=== PATIENT | male | born 1940 | race Caucasian/White ===

== ENCOUNTER 2016-09-20 09:12 | Observation (INO) | payer OTHER ==
[~2016-09-20] VITALS: Ht 167.6 cm; Wt 87.1 kg
[~2016-09-20 09:12] MED LIST: Amaryl PO; Cozaar PO; Halfprin PO; Lopressor PO; MULTIVITAMIN WITH MI PO; Norvasc PO; OMEGA 3-6-91200 MG PO; PriLOSEC PO; Restasis 0.05% BOTH EYES; VOLTAREN 1% GE100 GM TP; Vitamin B-12 PO; Vitamin D PO; Vitamin D, Drisdol PO; Vytorin 10/80 PO; Zantac,Taladine PO; celeBREX PO
[2016-09-20] MEDS ORDERED: ATORVASTATIN CA40 MG PO (09:56)
[2016-09-20] MEDS ORDERED: NOVOLOG PE100 UNITS/ SC (09:57)
[2016-09-20] MEDS ORDERED: METFORMIN HCL1000 MG PO (09:57)
[2016-09-20] MEDS ORDERED: LANTUS 3 M100 UNITS1 SC (09:58)
[2016-09-20 10:32] LABS: EOSINOPHIL COUNT 0.2 K/uL (0-0.3); HEMATOCRIT 36.8 % (38.0-50.0); IMMATURE GRANULOCYTE (%) 0.4 % (0.0-0.7); INSTRUMENT ABS NEUTROPHIL CT 3.5 K/uL; LYMPHOCYTE COUNT 1.2 K/uL (1.0-2.8); MCH 32.1 PG (29.0-34.0); MCHC 34.2 G/DL (30.0-36.0); MCV 93.9 FL (86-99); MEAN PLAT.VOLUME 9.9 uM^3 (9.0-12.4); MONOCYTE (%) 7.9 % (3-12); MONOCYTE COUNT 0.4 K/uL (0-0.8); NEUTROPHIL (%) 64.9 % (45-76); NEUTROPHIL COUNT 3.5 K/uL (1.8-6.4); PLATELET COUNT 166 K/uL (156-360); RBC DIS.WIDTH-CV 13.3 % (11.8-14.6); RBC DIS.WIDTH-SD 45.7 % (39-53); RED BLOOD COUNT 3.92 M/uL (4.00-5.50); WHITE BLOOD COUNT 5.4 K/uL (4.1-10.2)
[2016-09-20 10:42] LABS: INTER. NORMALIZED RATIO 1.1; PROTHROMBIN TIME 11.4 (9.2-11.2); PTT 28.3 (25-32)
[2016-09-20 10:51] LABS: CHLORIDE 102 mEq/L (99-109); SODIUM 137 mEq/L (136-147)
[2016-09-20 10:52] LABS: GLUCOSE 198 mg/dL (70-99)
[2016-09-20 10:54] LABS: ANION GAP 7 MEQ/L (2-14)
[2016-09-20 10:56] LABS: GFR ESTIMATE (CALCULATED) > 59 mL/min/
[2016-09-20 10:57] LABS: UREA NITROGEN (BUN) 15 mg/dL (9-23)
[2016-09-20 11:01] LABS: TROP-I INTERPRETATION NEGATIVE; TROPONIN-I 0.01 ng/mL (0.0-0.30)
[2016-09-20] MEDS ORDERED: LO-DOSE ASPIRIN81 M2 PO (13:52)
[2016-09-20] MEDS ORDERED: MYVITALIFE1 EACH PO (13:53)
[2016-09-20] MEDS ORDERED: COZAAR100 MG PO (13:54)
[2016-09-20] MEDS ORDERED: ZANTAC150 MG PO (13:54)
[2016-09-20] MEDS ORDERED: NORVASC10 MG PO (13:56)
[2016-09-20] MEDS ORDERED: LOPRESSOR50 MG PO (13:56)
[2016-09-20] MEDS ORDERED: PRILOSEC20 MG PO (13:57)
[2016-09-20] MEDS ORDERED: VITAMIN B-122500 MCG SL (13:57)
[2016-09-20] MEDS ORDERED: AMARYL4 MG PO (13:58)
[2016-09-20 14:07] LABS: LIPASE 13 U/L (1.0-51.0)
[2016-09-20 14:27] VITALS: BP 178/79
[2016-09-20 16:00] VITALS: BP 184/84
[2016-09-20 18:01] LABS: POINT-OF-CARE METER ID UU14162513
[2016-09-20 19:43] LABS: TROP-I INTERPRETATION NEGATIVE; TROPONIN-I 0.01 ng/mL (0.0-0.30)
[2016-09-20 20:00] VITALS: BP 162/84
[2016-09-20 21:42] LABS: POINT-OF-CARE METER ID UU14162513
[2016-09-20 23:17] VITALS: BP 175/79
[2016-09-21 01:45] LABS: TROP-I INTERPRETATION NEGATIVE; TROPONIN-I < 0.01 ng/mL (0.0-0.30)
[2016-09-21 01:51] LABS: HDL CHOLESTEROL 28 MG/DL (Desirable>=40); LDL CHOLESTEROL 62 mg/dL (Desirable<100); NON-HDL CHOLESTEROL 98 mg/dL (Desirable<160); TOTAL CHOLESTEROL 126 mg/dL (Desirable<200); TRIGLYCERIDES 178 MG/DL (Normal: <150)
[2016-09-21 04:00] VITALS: BP 168/93
[2016-09-21 08:23] VITALS: BP 190/78
[2016-09-21 08:23] LABS: POINT-OF-CARE METER ID UU13113831
[2016-09-21] MEDS ORDERED: SPIRONOLACTONE25 MG PO (09:36)
[2016-09-21 09:55] VITALS: BP 195/84
[2016-09-21 11:18] VITALS: BP 144/68
== END 2016-09-21 12:01 | disposition home or self-care (01) ==
LOC: EME 09:12 → EDOF 12:42 → 5WEST 12:42 → EDOF 12:42 → 5WEST 14:14
PROVIDERS: Emergency Medicine; Hospitalist
DX: R07.89 Other chest pain (principal); R06.02 Shortness of breath; E11.9 Type 2 diabetes mellitus without complications; I25.10 Atherosclerotic heart disease of native coronary artery without angina pectoris; D64.9 Anemia, unspecified; Z79.4 Long term (current) use of insulin; Z95.1 Presence of aortocoronary bypass graft; M06.9 Rheumatoid arthritis, unspecified
CPT/HCPCS: 71010; 71275; 80048; 80061; 82948; 83690; 83880; 84484; 85025; 85610; 85730; 93005; 99281; 99284; G0378; J0360; J1650; J1815; J1940; J7030; S0028

== ENCOUNTER 2016-10-12 09:35 | Day surgery (SDC) | payer OTHER ==
[~2016-10-12] VITALS: Ht 167.6 cm; Wt 88.9 kg
[~2016-10-12 09:35] MED LIST changes: +AMARYL4 MG PO; +ATORVASTATIN CA40 MG PO; +COZAAR100 MG PO; +IRON; +LANTUS 3 M100 UNITS1 SC; +LO-DOSE ASPIRIN81 M2 PO; +LOPRESSOR50 MG PO; +METFORMIN HCL1000 MG PO; +MYVITALIFE1 EACH PO; +NITROSTAT0.4 MG SL; +NORVASC10 MG PO; +NOVOLOG PE100 UNITS/ SC; +PRILOSEC20 MG PO; +SPIRONOLACTONE25 MG PO; +VITAMIN B-122500 MCG SL; +ZANTAC150 MG PO
[2016-10-12 10:37] LABS: POINT-OF-CARE METER ID UU13113696
[2016-10-12 14:24] LABS: POINT-OF-CARE METER ID UU13113819
== END 2016-10-12 18:53 | disposition home or self-care (01) ==
LOC: CATH 09:35
PROVIDERS: Internal Medicine Cardiovascular Disease
DX: T82.867A Thrombosis due to cardiac prosthetic devices, implants and grafts, initial encounter (principal); I25.810 Atherosclerosis of coronary artery bypass graft(s) without angina pectoris; Z95.1 Presence of aortocoronary bypass graft; E11.9 Type 2 diabetes mellitus without complications; I10 Essential (primary) hypertension; E78.5 Hyperlipidemia, unspecified; Z87.891 Personal history of nicotine dependence
CPT/HCPCS: 82948; C1750; C1769; C1887; C1894; J1644; J2250; J3010